=== PATIENT | female | born 1985 ===

== ENCOUNTER 2017-08-01 10:19 | Day surgery (SDC) | payer OTHER | END 2017-08-01 16:30 | disposition home or self-care (01) | LOC: CIR.AMB 10:19 | DX: O02.1 Missed abortion (principal) ==

== ENCOUNTER → 2018-06-26 | Day surgery (SDC) | payer OTHER | END | disposition home or self-care (01) | LOC: CIR.AMB 08:30 | DX: O02.1 Missed abortion (principal); Z3A.01 Less than 8 weeks gestation of pregnancy ==

== ENCOUNTER 2019-08-08 12:02 | Inpatient (IN) | payer OTHER ==
[~2019-08-08] VITALS: Ht 213.4 cm; Wt 4.1 kg
[2019-08-15] MEDS ORDERED: IRON325 MG PO (11:57)
== END 2019-08-30 12:18 | disposition home or self-care (01) | DRG 788 ==
LOC: O/R 08-27 06:25 → OB/GYN 08-27 08:30
PROVIDERS: ADMIT Obstetrics & Gynecology; ATTEND Obstetrics & Gynecology
PROC: 4A1HXFZ Monitoring of Products of Conception, Cardiac Rhythm, External Approach (ICD-10-PCS; 2019-08-27)
PROC: 3E033VJ Introduction of Other Hormone into Peripheral Vein, Percutaneous Approach (ICD-10-PCS; 2019-08-27)
PROC: 10D00Z1 Extraction of Products of Conception, Low, Open Approach (ICD-10-PCS; principal; 2019-08-27 08:30)
DX: O34.211 Maternal care for low transverse scar from previous cesarean delivery (principal); Z3A.39 39 weeks gestation of pregnancy; Z37.0 Single live birth